=== PATIENT | male | born 2000 | race Caucasian/White ===

== ENCOUNTER 2023-01-31 14:08 | Emergency (ER) | payer OTHER, SELFPAY ==
--- NOTE | ~2023-01-31 | XR_ITS ---
EXAMINATION: XR chest 2V Exam Date/Time: 01/31/2023 16:43 CDT HISTORY: R lower rib pain Comparison: None available. RESULT: Lines, tubes, and devices: None. Lungs and pleura: No focal consolidation or pneumothorax. Diffuse reticulonodular opacities. Cardiomediastinal silhouette: Stable. Other: No acute osseous or upper abdominal finding. IMPRESSION: Pulmonary opacities may represent bronchiolitis, as can be seen with atypical infection, asthma, aspi ration, and small airways disease. Reviewed, dictated and finalized at location [facility]. IMPRESSION: Pulmonary opacities may represent bronchiolitis, as can be seen with atypical i nfection, asthma, aspiration, and small airways disease.
[2023-01-31 14:12] VITALS: BP 161/89; PULSE 103; RESP 20; TEMP 36.6; O2SAT 98
[2023-01-31 14:59] VITALS: RESP 18
--- NOTE | 2023-01-31 15:12 | ED.ABDPAIN ---
HPI - Abdominal Pain General Chief Complaint: Abdominal Pain Stated Complaint: r flank pain Time Seen by Provider: 01/31/23 15:02 History of Present Illness HPI narrative: Patient is a 22-year-old male here for evaluation of right flank pain over the past day. Patient states that he felt a pop this morning when he woke up after going from lying to sitting. Since then he has had a soreness in his right flank/lower rib that remains in that area. Patient has been coughing and has felt congested x 3 days. He denies any fevers, chills, dysuria, urgency or frequency, incontinence or retention of bowel or bladder, saddle anesthesia. He has not attempted any medicine for his pain. No weakness in his legs. Related Data Allergies Allergy/AdvReac Type Severity Reaction Status Date / Time No Known Allergies Allergy Verified 01/31/23 14:58 Review of Systems Review of Systems: Gen: Denies fevers or chills Eyes: Denies eye pain or visual change ENT: Denies congestion Respiratory: Denies shortness of breath or cough CV: Denies chest pain or palpitations GI: Denies abdominal pain nausea, emesis or diarrhea : denies burning, urgency, frequency or hematuria Musculoskeletal: Reports right flank pain Neuro: Denies numbness, tingling, weakness or focal weakness Skin: Denies rash Except as documented, all other systems reviewed and negative Exam Narrative: APPEARANCE: Well appearing, no pain in distress, well-nourished. Head: Normocephalic and atraumatic. EYES: PERRLA/EOMI, conjunctivae clear NOSE: No nasal drainage EARS: External ear normal in appearance THROAT: Oropharynx is clear. Mucous membranes are moist. NECK: Supple. No adenopathy, no masses. RESPIRATORY: Airway patent, respirations nonlabored. Clear to auscultation bilaterally, no rales, rhonchi, wheezing. CARDIOVASCULAR: Regular rate and rhythm without murmurs, rubs, or gallops. ABDOMINAL: No CVA tenderness. Normoactive bowel sounds. Soft, nontender, nondistended. No rebound tenderness or guarding. MUSCULOSKELETAL: Normal gait. Extremities are warm and well-perfused. Moves all extremities well. No edema. NEURO: Normal speech. No focal neurologic deficits. SKIN: Skin is warm and dry. No rashes. PSYCHIATRIC: Normal affect/mood. Course Vital Signs Vital signs: Vital Signs Temperature 97.8 F 01/31/23 14:12 Pulse Rate 103 H 01/31/23 14:12 Respiratory Rate 20 01/31/23 14:12 Blood Pressure 161/89 H 01/31/23 14:12 Pulse Oximetry 98 01/31/23 14:12 Oxygen Delivery Room Air 01/31/23 14:12 Temperature 97.8 F 01/31/23 17:59 Pulse Rate 75 01/31/23 17:59 Respiratory Rate 18 01/31/23 17:59 Blood Pressure 140/87 01/31/23 17:59 Pulse Oximetry 94 01/31/23 17:59 Oxygen Delivery Room Air 01/31/23 14:12 MDM - Abdominal Pain MDM Narrative Medical decision making narrative: 22-year-old male here for evaluation of right flank pain/ lower rib pain and a cough x 3 days. Non toxic in appearance with normal vital signs. He has no CVA tenderness on exam, his lungs are clear throughout. His urine has no evidence of blood or infection to suggest kidney stone or pyelonephritis. Considered msk sprain/ strain given mechanism, but given the location of the pain and presence of cough a chest x-ray was obtained which shows possible pneumonia. We will treat with antibiotics, patient feeling improved after analgesia in the ED. Return precautions were discussed and he voiced understanding. Lab Data Labs: Lab Results 01/31/23 Range/Units 16:00 Urine Color Dark yellow (Yellow) Urine Appearance Cloudy H (Clear) Urine pH 6.0 (5.0-9.0) Ur Specific [place] 1.028 (1.001-1.035) Urine Protein Trace (Negative) mg/dL Urine Glucose (UA) Negative (Negative) mg/dL Urine Ketones Trace (Negative) mg/dL Ur Blood (Man) Negative (Negative) Urine Nitrate Negative (Negative) Urine Bilirubin Negative (Negative) Urine Urobilinogen 0
[2023-01-31 16:02] VITALS: BP 159/94; PULSE 93; RESP 16; O2SAT 95
[2023-01-31] MEDS: ACETAMINOPHEN 325 MG TABLET 650 MG PO (16:03)
[2023-01-31] MEDS: LIDOCAINE 5% PATCH 1 PATCH TRANSDERM (16:04)
[2023-01-31 16:29] LABS: Appearance Urine Cloudy (Clear); Bacteria Urine None Seen /hpf; Bilirubin Urine Negative (Negative); Blood Urine Negative (Negative); Color Urine Dark Yellow (Yellow); Glucose Urine UA Negative (Negative); Ketones Urine Trace mg/dL (Negative); Leukocyte Esterase Ur Negative LEU/UL (Negative); Mucus Urine Present /lpf; Need Manual Microscopic Reviewed; Nitrate Urine Negative (Negative); Non Pathogenic Casts 0-2; Protein Urine Trace mg/dL (Negative); RBC Urine 0-2 /hpf (0-2); Specific Grav Ur 1.028 (1.001-1.035); Squamous Epithelial Cell Urine None seen /hpf (Few); Urobilinogen Urine 0.2 mg/dL (<2.0); WBC Urine 0-5 /hpf
[2023-01-31 16:32] LABS: Add Urine Microscopic? YES
[2023-01-31] MEDS: KETOROLAC 30 MG/ML VIAL (*BKC) IM (17:30)
[2023-01-31 17:59] VITALS: BP 140/87; PULSE 75; RESP 18; TEMP 36.6; O2SAT 94
== END 2023-01-31 18:31 | disposition home or self-care (01) ==
PROVIDERS: Emergency Provider Physician Assistant
DX: R10.9 Unspecified abdominal pain (principal); R91.8 Other nonspecific abnormal finding of lung field
CPT/HCPCS: 71046; 81001; 96372; 99283; A9270; J1885